=== PATIENT | female | born 1975 | race Caucasian/White ===

== ENCOUNTER → 2016-09-24 | Outpatient (CLI) | payer BC ==
[2016-09-26 08:54] LABS: MEAN BLOOD GLUCOSE (CALC) 107.14 mg/dL
[2016-09-26 08:55] LABS: HEMOGLOBIN A1C 5.8 % (4.2-6.0)
== END ==
LOC: MOB LAB 14:06
PROVIDERS: ATTEND Family Medicine
DX: E11.9 Type 2 diabetes mellitus without complications (principal)
CPT/HCPCS: 36415; 83036